=== PATIENT | female | born 1965 | race Two or more races ===

== ENCOUNTER → 2018-05-14 | Outpatient (CLI) | payer OTHER, BC ==
[2018-05-16 08:08] LABS: RUBEOLA IgG ANTIBODY 49.1 AU/mL (Immune >29.9)
[2018-05-16 11:25] LABS: RUBELLA IgG QUALITATIVE IMMUNE (IMMUNE)
== END ==
LOC: M WUC 17:22
DX: Z02.1 Encounter for pre-employment examination (principal)
CPT/HCPCS: 86762

== ENCOUNTER → 2021-01-13 | Outpatient (CLI) | payer OTHER, BC ==
--- NOTE | 2021-01-13 16:18 | REP ---
INDICATION: CONTUSION BACK WALL THORAX. COMPARISON: None. TECHNIQUE: Upright PA view of the chest, supplemented by four views of the right ribs and four views of the left ribs, were obtained. FINDINGS: There are benign calcified granulomas in the lower lung zone on the right. There is linear scarring or atelectasis in the right lung base. The lungs are otherwise clear. The heart borders and mediastinum are unremarkable. The upper abdominal bowel gas pattern is normal. There is dextroscoliosis of the thoracic spine. There is no evidence of rib fractures. There is no evidence for pneumothorax or pleural effusion. IMPRESSION: 1. No evidence of acute cardiopulmonary pathology. 2. No evidence of acute bony injury to the chest. <Electronically signed by Jagdish Gomez > 01/13/21 [id number]
== END ==
LOC: M WUC 15:34
PROVIDERS: ATTEND Physician Assistant
DX: S20.223A Contusion of bilateral back wall of thorax, initial encounter (principal); X58.XXXA Exposure to other specified factors, initial encounter; Y92.9 Unspecified place or not applicable

== ENCOUNTER → 2021-10-18 | Outpatient (REF) | LOC: M EMP 09:02 | PROVIDERS: ATTEND Family Medicine | DX: Z11.52 Encounter for screening for COVID-19 (principal) ==

== ENCOUNTER → 2023-02-13 | Outpatient (REF) | LOC: M LAB 11:14 | PROVIDERS: ATTEND Nurse Practitioner Adult Health | DX: Z02.79 Encounter for issue of other medical certificate (principal) ==